=== PATIENT | female | born 1945 | race Caucasian/White ===

== ENCOUNTER 2023-06-07 06:24 | Day surgery (SDC) | payer MEDICARE, OTHER, SELFPAY ==
[2023-06-01 08:50] VITALS: BMI 21.7
[2023-06-07] VITALS (9 sets, daily range): BP systolic 81–135; BP diastolic 53–74; BMI 21.7
[2023-06-07] MEDS: CYSVIEW KIT 100 MG INTRAVES (09:54)
[2023-06-07] MEDS: NORMOSOL-R 1000 IV (10:00)
== END 2023-06-07 13:21 | disposition home or self-care (01) ==
LOC: SDS 06:24
PROVIDERS: ATTENDING PHYSICIAN Specialist
DX: N35.92 Unspecified urethral stricture, female (principal); Z85.51 Personal history of malignant neoplasm of bladder; Z85.54 Personal history of malignant neoplasm of ureter
CPT/HCPCS: 52354; C9738; 88305; 74420; 76000; 88341; 88342; J1580

== ENCOUNTER 2023-12-06 06:10 | Day surgery (SDC) | payer MEDICARE, OTHER, SELFPAY ==
--- NOTE | 2023-12-04 10:47 | PTCARENOTE ---
eGFR 57.31 collected today; Rashida at 's office was notified.
[2023-12-05 10:58] VITALS: BMI 21.1
[2023-12-06] VITALS (12 sets, daily range): BP systolic 121–153; BP diastolic 62–91; BMI 21.1
[2023-12-06] MEDS: NORMOSOL-R 1000 IV (09:15)
[2023-12-06] MEDS: CYSVIEW KIT 100 MG INTRAVES (09:22)
== END 2023-12-06 13:54 | disposition home or self-care (01) ==
LOC: SDS 06:10
PROVIDERS: ATTENDING PHYSICIAN Specialist
DX: C67.9 Malignant neoplasm of bladder, unspecified (principal)
CPT/HCPCS: 52204; 52005; 88305; 74420; 76000; A9589; J1580

== ENCOUNTER → 2024-04-22 08:04 | Outpatient (REF) | payer MEDICARE, OTHER, SELFPAY ==
[2024-04-22 10:37] LABS: Hematocrit 38.5 % (37.0-47.0); Hemoglobin 12.8 g/dL (12.0-16.0); Mean Corp Hgb Conc. 33.2 g/dL (33.0-37.0); Mean Corpuscular Hgb 30.6 pg (27.0-31.0); Mean Corpuscular Volume 92.1 fL (81.0-99.0); Mean Platelet Volume 11.1 fL (7.4-10.4); Platelet Count 248 10^3/uL (130-400); Red Blood Cell Count 4.18 10^6/uL (4.20-5.40); Red Cell Dist. Width 13.1 % (11.5-14.5); White Blood Cell Count 5.5 10^3/uL (4.8-10.8)
[2024-04-22 11:04] LABS: ALT (SGPT) 35 U/L (0-35); AST (SGOT) 41 U/L (14-36); Albumin 4.6 g/dl (3.5-5.0); Alkaline Phosphatase 83 U/L (38-126); Blood Urea Nitrogen 22 mg/dl (7-17); Calcium 9.6 mg/dl (8.4-10.2); Carbon Dioxide 28 mmol/L (22-30); Chloride 104 mmol/L (98-107); Glucose 87 mg/dl (70-99); Potassium 4.5 mmol/L (3.5-5.1); Sodium 140 mmol/L (135-145); Total Bilirubin 0.7 mg/dl (0.2-1.3); Total Protein 7.1 g/dl (6.3-8.2); eGFR > 60.00
== END ==
LOC: SDSPAT 08:04
PROVIDERS: ATTENDING PHYSICIAN Specialist; FAMILY PHYSICIAN Family Medicine
DX: Z01.818 Encounter for other preprocedural examination (principal)
CPT/HCPCS: 36415; 80053; 85027

== ENCOUNTER 2024-04-26 06:23 | Day surgery (SDC) | payer MEDICARE, OTHER, SELFPAY ==
[2024-04-22 13:43] VITALS: BMI 21.1
[2024-04-26] VITALS (8 sets, daily range): BP systolic 99–136; BP diastolic 53–82; BMI 21.1
[2024-04-26] MEDS: NORMOSOL-R/PLASMALYTE-A 1000 IV (09:15)
[2024-04-26] MEDS: CYSVIEW KIT 100 MG INTRAVES (09:25)
== END 2024-04-26 12:07 | disposition home or self-care (01) ==
LOC: SDS 06:23
PROVIDERS: ATTENDING PHYSICIAN Specialist
DX: Z85.51 Personal history of malignant neoplasm of bladder (principal)
CPT/HCPCS: 52000; C9738; A9589; J1580

== ENCOUNTER 2024-09-18 06:29 | Day surgery (SDC) | payer MEDICARE, OTHER, SELFPAY ==
[2024-09-11 13:00] VITALS: BMI 21.0
--- NOTE | 2024-09-12 13:08 | PTCARENOTE ---
Abnormal ECG 09/11/[address] Patino, no further interventions requested.
[2024-09-18] VITALS (7 sets, daily range): BP systolic 121–160; BP diastolic 55–69; BMI 21.0
[2024-09-18] MEDS: CYSVIEW KIT 100 MG INTRAVES (09:25)
[2024-09-18] MEDS: NORMOSOL-R/PLASMALYTE-A 1000 IV (09:32)
[2024-09-18] MEDS: Pyridium 200 MG PO (12:07)
== END 2024-09-18 12:35 | disposition home or self-care (01) ==
LOC: SDS 06:29
PROVIDERS: ATTENDING PHYSICIAN Specialist
DX: Z08 Encounter for follow-up examination after completed treatment for malignant neoplasm (principal); N30.20 Other chronic cystitis without hematuria
CPT/HCPCS: 52204; C9738; 88305; A9589; J1580